=== PATIENT | male | born 1980 | race Caucasian/White ===

== ENCOUNTER 2020-10-02 10:19 | Emergency (ER) | payer OTHER ==
[~2020-10-02] VITALS: Ht 177.8 cm; Wt 75.0 kg
[2020-10-02 10:33] VITALS: BP 122/86
--- NOTE | 2020-10-02 10:41 | NUR ---
pt has a condom on his finger plus is elevating it. no obvious bleeding out noted.
[2020-10-02] MEDS ORDERED: bacitracin 15gm ointment TP ONE (12:10)
[2020-10-02] MEDS ORDERED: LIDOcaine 1% W/epiNEPHrine 1:200,000 10ml vial IJ ONE (12:10)
== END 2020-10-02 14:12 | disposition home or self-care (01) ==
LOC: ER 10:19
DX: S61.213A Laceration without foreign body of left middle finger without damage to nail, initial encounter (principal); W26.0XXA Contact with knife, initial encounter; Y93.89 Activity, other specified; Y92.89 Other specified places as the place of occurrence of the external cause; Y99.0 Civilian activity done for income or pay
CPT/HCPCS: 99282